=== PATIENT | female | born 1975 | race Hispanic/Latino ===

== ENCOUNTER 2018-01-25 08:15 | Emergency (ER) | payer SELFPAY ==
[2018-01-25] MEDS ORDERED: ONDANSETRON HCL 4 MG/2 ML VIAL ONE (09:03)
[2018-01-25] MEDS ORDERED: LACTATED RINGERS 1000ML 1,000 ML IV ONE (09:03)
[2018-01-25] MEDS ORDERED: FAMOTIDINE/PF 20 MG/2 ML VIAL IV ONE (09:03)
[2018-01-25] MEDS ORDERED: MORPHINE SULFATE 4 MG/1ML SYG ONE (09:03)
[2018-01-25 09:35] LABS: BASOPHILS % (AUTO) 0.3 % (0.0-5.0); HEMATOCRIT 28.8 % (36-48); LYMPHOCYTES % (AUTO) 9.9 % (21.0-51.0); MEAN CORPUSCULAR HEMOGLOBIN 23.7 pg (27.0-33.0); MEAN CORPUSCULAR HGB CONC 32.3 g/dL (32.0-36.0); MEAN CORPUSCULAR VOLUME 73.3 fL (79-99); MONOCYTES % (AUTO) 3.7 % (3.0-13.0); NEUTROPHILS % (AUTO) 86.1 % (40.0-77.0); PLATELET COUNT (AUTO) 295 K/uL (130-400); RED BLOOD CELL COUNT(AUTO) 3.93 MIL/uL (4.00-5.50); RED CELL DISTRIBUTION WIDTH 17.4 % (11.0-15.5); WHITE BLOOD COUNT (AUTO) 10.4 K/uL (4.8-10.8)
[2018-01-25 09:37] LABS: APPEARANCE,URINE Cloudy (CLEAR); BILIRUBIN,URINE Negative (NEGATIVE); COLOR,URINE Dark Yellow (YELLOW); GLUCOSE, URINE (UA) Negative (NEGATIVE); KETONES,URINE Negative (NEGATIVE); LEUKOCYTE ESTERASE ,URINE Negative (NEGATIVE); NITRATE,URINE Negative (NEGATIVE); OCCULT BLOOD,URINE Large (NEGATIVE); PH,URINE 5.5 (5.0-8.0); PROTEIN,URINE POS 1+ (NEGATIVE)
[2018-01-25 09:39] LABS: CREATININE 0.7 mg/dL (0.5-1.5); POTASSIUM 3.1 mmol/L (3.5-5.1)
[2018-01-25 09:40] LABS: HCG,QUAL RESULT NEGATIVE (NEGATIVE)
[2018-01-25 09:44] LABS: ALBUMIN 3.5 g/dL (3.5-5.0); BILIRUBIN,TOTAL 0.3 mg/dL (0.2-1.0); TOTAL PROTEIN, SERUM 7.3 g/dL (6.0-8.3)
[2018-01-25 09:46] LABS: BACTERIA,URINE Few /HPF (None Seen); MUCUS,URINE Few LPF (None Seen); RBC,URINE 0-1 /HPF (0-1); SQUAMOUS EPITHELIAL CELL,UR Moderate /HPF (0-2)
[2018-01-25] MEDS ORDERED: IOHEXOL-350 75 ML VIAL IV ONE (09:49)
[2018-01-25] MEDS ORDERED: LIDOCAINE HCL 2% VISCOUS 15 ML UDCUP ONE (11:02)
[2018-01-25] MEDS ORDERED: POTASSIUM BICARB/CIT AC 25 MEQ TABLET.EFF ONE (11:02)
[2018-01-25] MEDS ORDERED: MAG HYDROX/AL HYDROX/SIMETH ES 30 ML SUSP UDCUP ONE (11:02)
== END 2018-01-25 11:13 | disposition home or self-care (01) ==
LOC: EDH 08:15
DX: K29.70 Gastritis, unspecified, without bleeding (principal); D64.9 Anemia, unspecified; E87.6 Hypokalemia; I10 Essential (primary) hypertension; Z87.891 Personal history of nicotine dependence; Z98.51 Tubal ligation status
CPT/HCPCS: 36415; 74177; 76705; 80053; 81001; 81025; 83605; 83690; 85025; 87040 ×2; 96361; 96374; 96375; 99284; J2270; J2405; J3490; J7120; Q9967

== ENCOUNTER 2018-05-07 16:58 | Emergency (ER) | payer OTHER | END 2018-05-07 18:52 | disposition home or self-care (01) | LOC: EDH 16:58 | DX: J20.9 Acute bronchitis, unspecified (principal); I10 Essential (primary) hypertension; Z98.51 Tubal ligation status; Z72.0 Tobacco use | CPT/HCPCS: 71046; 87804; 87880 ==

== ENCOUNTER 2018-11-07 15:48 | Emergency (ER) | payer MEDICAID, OTHER ==
[2018-11-07 16:37] LABS: BASOPHILS % (AUTO) 0.4 % (0.0-5.0); EOSINOPHILS % (AUTO) 0.1 % (0.0-8.0); HEMATOCRIT 31.7 % (36-48); LYMPHOCYTES % (AUTO) 23.1 % (21.0-51.0); MEAN CORPUSCULAR HGB CONC 32.5 g/dL (32.0-36.0); MEAN CORPUSCULAR VOLUME 76.8 fL (79-99); MONOCYTES % (AUTO) 5.2 % (3.0-13.0); NEUTROPHILS % (AUTO) 71.2 % (40.0-77.0); NUCLEATED RED BLOOD CELLS 0.1 % (0.0-0.19); PLATELET COUNT (AUTO) 222 K/uL (130-400); RED BLOOD CELL COUNT(AUTO) 4.12 MIL/uL (4.00-5.50); RED CELL DISTRIBUTION WIDTH 16.9 % (11.0-15.5)
[2018-11-07 16:40] LABS: CREATININE 0.6 mg/dL (0.5-1.5)
[2018-11-07 16:44] LABS: POTASSIUM 2.7 mmol/L (3.5-5.1)
[2018-11-07] MEDS ORDERED: POTASSIUM CHLORIDE 20 MEQ ERTAB PO ONE (17:19)
[2018-11-07] MEDS ORDERED: ONDANSETRON 4 MG TABLET ONE (17:19)
[2018-11-07] MEDS ORDERED: DiphenhydrAMINE HCL 50 MG/ML VIAL ONE (18:01)
[2018-11-07] MEDS ORDERED: SODIUM CHLORIDE 0.9% 1000ML 1,000 ML IV ONE (18:02)
[2018-11-07] MEDS ORDERED: KETOROLAC TROMETHAMINE 30MG/ML ONE (18:02)
[2018-11-07] MEDS ORDERED: PROCHLORPERAZINE EDISYLATE 10 MG/2 ML VIAL ONE (18:02)
== END 2018-11-07 19:48 | disposition home or self-care (01) ==
LOC: EDH 15:48
DX: G43.109 Migraine with aura, not intractable, without status migrainosus (principal); R20.0 Anesthesia of skin; I10 Essential (primary) hypertension; Z87.891 Personal history of nicotine dependence
CPT/HCPCS: 36415; 70450; 80048; 85025; 96374; 96375; 99285; J0780; J1200; J1885; J7030; Q0162

== ENCOUNTER 2019-08-06 10:26 | Emergency (ER) | payer SELFPAY | END 2019-08-06 11:32 | disposition home or self-care (01) | LOC: EDH 10:26 | DX: M54.5 Low back pain (principal); I10 Essential (primary) hypertension; Z72.0 Tobacco use | CPT/HCPCS: 99282 ==

== ENCOUNTER 2020-06-04 08:28 | Emergency (ER) | payer SELFPAY ==
[2020-06-04 09:49] LABS: BASOPHILS % (AUTO) 0.3 % (0.0-5.0); EOSINOPHILS % (AUTO) 1.8 % (0.0-8.0); HEMATOCRIT 40.1 % (36-48); LYMPHOCYTES % (AUTO) 22.2 % (21.0-51.0); MEAN CORPUSCULAR HGB CONC 31.7 g/dL (32.0-36.0); MEAN CORPUSCULAR VOLUME 88.5 fL (79-99); MONOCYTES % (AUTO) 4.1 % (3.0-13.0); NEUTROPHILS % (AUTO) 71.3 % (40.0-77.0); PLATELET COUNT (AUTO) 263 K/uL (130-400); RED BLOOD CELL COUNT(AUTO) 4.53 MIL/uL (4.00-5.50); RED CELL DISTRIBUTION WIDTH 13.9 % (11.0-15.5); WHITE BLOOD COUNT (AUTO) 8.7 K/uL (4.8-10.8)
[2020-06-04 09:53] LABS: CREATININE 0.7 mg/dL (0.5-1.5); POTASSIUM 3.5 mmol/L (3.5-5.1)
[2020-06-04] MEDS ORDERED: HYDROCODONE/ACETAMINOPHEN 7.5/325 MG TAB ONE (10:12)
== END 2020-06-04 11:29 | disposition home or self-care (01) ==
LOC: EDH 08:28
DX: S63.502A Unspecified sprain of left wrist, initial encounter (principal); S50.12XA Contusion of left forearm, initial encounter; S60.212A Contusion of left wrist, initial encounter; I10 Essential (primary) hypertension; W18.39XA Other fall on same level, initial encounter; Y93.89 Activity, other specified; Y92.89 Other specified places as the place of occurrence of the external cause; Y99.8 Other external cause status
CPT/HCPCS: 29125; 36415; 73090; 73110; 80048; 85025; 93005

== ENCOUNTER 2020-07-12 16:56 | Emergency (ER) | payer SELFPAY ==
[2020-07-12] MEDS ORDERED: ACETAMINOPHEN-CODEINE 300/30MG TAB ONE (17:32)
[2020-07-12 17:52] LABS: BASOPHILS % (AUTO) 0.5 % (0.0-5.0); EOSINOPHILS % (AUTO) 3.9 % (0.0-8.0); HEMATOCRIT 39.2 % (36-48); LYMPHOCYTES % (AUTO) 29.5 % (21.0-51.0); MEAN CORPUSCULAR HEMOGLOBIN 28.6 pg (27.0-33.0); MEAN CORPUSCULAR HGB CONC 31.6 g/dL (32.0-36.0); MEAN CORPUSCULAR VOLUME 90.3 fL (79-99); MONOCYTES % (AUTO) 5.8 % (3.0-13.0); NEUTROPHILS % (AUTO) 60.2 % (40.0-77.0); PLATELET COUNT (AUTO) 244 K/uL (130-400); RED BLOOD CELL COUNT(AUTO) 4.34 MIL/uL (4.00-5.50); RED CELL DISTRIBUTION WIDTH 13.6 % (11.0-15.5); WHITE BLOOD COUNT (AUTO) 7.4 K/uL (4.8-10.8)
[2020-07-12 18:06] LABS: CREATININE 0.8 mg/dL (0.5-1.5); POTASSIUM 3.6 mmol/L (3.5-5.1)
[2020-07-12 18:11] LABS: ALBUMIN 3.4 g/dL (3.5-5.0); BILIRUBIN,TOTAL 0.1 mg/dL (0.2-1.0); TOTAL PROTEIN, SERUM 7.7 g/dL (6.0-8.3)
[2020-07-12] MEDS ORDERED: LIDOCAINE HCL-MPF 1% 2ML VIAL ONE (18:47)
[2020-07-12] MEDS ORDERED: CEFTRIAXONE SODIUM 1 GM ONE (18:47)
== END 2020-07-12 18:56 | disposition home or self-care (01) ==
LOC: EDH 16:56
DX: J02.0 Streptococcal pharyngitis (principal); Z20.822 Contact with and (suspected) exposure to COVID-19; I10 Essential (primary) hypertension; Z72.0 Tobacco use
CPT/HCPCS: 36415; 71045; 80053; 85025; 87426; 87635; 87804 ×2; 87880; 96372; 99284; C9803; J0696; J3490

== ENCOUNTER 2021-05-08 10:23 | Emergency (ER) | payer OTHER ==
[~2021-05-08] VITALS: Ht 162.6 cm; Wt 106.6 kg
[2021-05-08 10:37] VITALS: BP 170/95
[2021-05-08] MEDS ORDERED: IBUPROFEN 800 MG TAB PO SCH (11:00)
== END 2021-05-08 12:09 | disposition home or self-care (01) ==
LOC: EDH 10:23
DX: S93.401A Sprain of unspecified ligament of right ankle, initial encounter (principal); Z79.1 Long term (current) use of non-steroidal anti-inflammatories (NSAID); X58.XXXA Exposure to other specified factors, initial encounter; Y93.89 Activity, other specified; Y92.89 Other specified places as the place of occurrence of the external cause; Y99.8 Other external cause status
CPT/HCPCS: 73610

== ENCOUNTER 2021-09-16 09:12 | Emergency (ER) | payer OTHER ==
[~2021-09-16] VITALS: Ht 162.6 cm; Wt 131.5 kg
[2021-09-16 09:38] LABS: BASOPHILS % (AUTO) 0.3 % (0.0-5.0); EOSINOPHILS % (AUTO) 0.4 % (0.0-8.0); HEMATOCRIT 41.3 % (36-48); LYMPHOCYTES % (AUTO) 25.1 % (21.0-51.0); MEAN CORPUSCULAR HEMOGLOBIN 32.2 pg (27.0-33.0); MEAN CORPUSCULAR HGB CONC 34.6 g/dL (32.0-36.0); MONOCYTES % (AUTO) 6.1 % (3.0-13.0); NEUTROPHILS % (AUTO) 67.9 % (40.0-77.0); PLATELET COUNT (AUTO) 262 K/uL (130-400); RED BLOOD CELL COUNT(AUTO) 4.44 MIL/uL (4.00-5.50); RED CELL DISTRIBUTION WIDTH 11.8 % (11.0-15.5); WHITE BLOOD COUNT (AUTO) 8.9 K/uL (4.8-10.8)
[2021-09-16 09:50] LABS: ALBUMIN 3.7 g/dL (3.5-5.0); CREATININE 0.7 mg/dL (0.5-1.5); POTASSIUM 3.5 mmol/L (3.5-5.1)
[2021-09-16 10:00] LABS: APPEARANCE,URINE CLEAR (CLEAR); BILIRUBIN,URINE NEGATIVE (NEGATIVE); COLOR,URINE YELLOW (YELLOW); GLUCOSE, URINE (UA) NEGATIVE (NEGATIVE); KETONES,URINE NEGATIVE (NEGATIVE); LEUKOCYTE ESTERASE ,URINE TRACE (NEGATIVE); NITRATE,URINE NEGATIVE (NEGATIVE); OCCULT BLOOD,URINE MODERATE (NEGATIVE); PROTEIN,URINE NEGATIVE (NEGATIVE); UROBILINOGEN,URINE 0.2 mg/dL (0.2-1.0)
[2021-09-16 10:01] LABS: HCG,QUALITATIVE URINE NEGATIVE (NEGATIVE)
[2021-09-16 10:12] LABS: BACTERIA,URINE Few /HPF (None Seen); MUCUS,URINE Moderate LPF (None Seen); WBC,URINE 0-1 /HPF (0-1)
[2021-09-16] MEDS ORDERED: IOHEXOL 350 MG/ML 100ML INFUS..BTL IV ONE (12:52)
[2021-09-16] MEDS ORDERED: DiphenhydrAMINE HCL 50 MG/ML VIAL IV ONE (15:30)
[2021-09-16] MEDS ORDERED: KETOROLAC 30MG VIAL (30MG/ML) IVP ONE (15:30)
[2021-09-16] MEDS ORDERED: 0.9%NACL 1000ML 1,000 ML IV ONE (15:30)
[2021-09-16] MEDS ORDERED: METOCLOPRAMIDE 10 MG/2 ML VIAL IVP ONE (15:30)
[2021-09-16] MEDS ORDERED: PROM25TA7 PO (17:23)
[2021-09-16] MEDS ORDERED: IBUP-2070 PO (17:23)
[2021-09-16 17:30] VITALS: BP 149/85
== END 2021-09-16 17:40 | disposition home or self-care (01) ==
LOC: EDH 09:12
DX: G43.109 Migraine with aura, not intractable, without status migrainosus (principal); Z98.890 Other specified postprocedural states
CPT/HCPCS: 99285; 70496; 96374; 96375; 96361; 84484; 80053; 85025; 81001; 81025; 36415; 70498; 93005; 70450; J1200; J7030; J1885; J2765; Q9967

== ENCOUNTER 2022-03-02 09:50 | Emergency (ER) | payer OTHER ==
[~2022-03-02] VITALS: Ht 162.6 cm; Wt 127.0 kg
[~2022-03-02 09:50] MED LIST: IBUP-2070 PO; PROM25TA7 PO
[2022-03-02] MEDS ORDERED: NIRM1TAB PO (11:13)
[2022-03-02] MEDS ORDERED: ALBU90AE2 IH (11:13)
[2022-03-02] MEDS ORDERED: IBUP-2070 PO (11:13)
[2022-03-02] MEDS ORDERED: BENZ200C53 PO (11:13)
[2022-03-02 11:29] VITALS: BP 148/88
== END 2022-03-02 11:30 | disposition home or self-care (01) ==
LOC: EDH 09:50
DX: U07.1 COVID-19 (principal); B34.9 Viral infection, unspecified; Z79.1 Long term (current) use of non-steroidal anti-inflammatories (NSAID); Z79.899 Other long term (current) drug therapy
CPT/HCPCS: 99283; 87635; 87880; 87804 ×2; C9803

== ENCOUNTER 2023-07-05 10:07 | Emergency (ER) | payer OTHER ==
[~2023-07-05] VITALS: Ht 162.6 cm; Wt 122.5 kg
[~2023-07-05 10:07] MED LIST changes: +ALBU90AE2 IH; +BENZ200C53 PO; +NIRM1TAB PO
[2023-07-05] MEDS: IBUPROFEN 600 MG TABLET PO ONE (10:36)
[2023-07-05 12:26] VITALS: BP 153/72; PULSE 70; RESP 18; O2SAT 98
== END 2023-07-05 12:41 | disposition home or self-care (01) ==
LOC: EDH 10:07
DX: S93.401A Sprain of unspecified ligament of right ankle, initial encounter (principal); S60.212A Contusion of left wrist, initial encounter; S63.502A Unspecified sprain of left wrist, initial encounter; Z98.51 Tubal ligation status; W18.39XA Other fall on same level, initial encounter; Y93.89 Activity, other specified; Y92.89 Other specified places as the place of occurrence of the external cause; Y99.8 Other external cause status
CPT/HCPCS: 29125; 73100; 73610